=== PATIENT | female | born 1995 | race Caucasian/White ===

== ENCOUNTER 2019-03-09 10:35 | Emergency (ER) | payer MEDICAID ==
[~2019-03-09] VITALS: Ht 157.5 cm; Wt 52.3 kg
[~2019-03-09 10:35] MED LIST: METH500T PO
[2019-03-09] MEDS ORDERED: normal saline 1000ML IV soln IVB ONE (12:05)
[2019-03-09] MEDS ORDERED: ondansetron/PF 4mg/2ml inj IV ONE (12:05)
[2019-03-09] MEDS ORDERED: diphenhydrAMINE 50 mg/ml inj IV ONE (12:05)
[2019-03-09] MEDS ORDERED: haloperidol lactate 5mg/ml inj IM ONE (12:05)
[2019-03-09 12:32] LABS: BASOPHILS % (AUTO) 0.2 % (0-1); EOSINOPHILS % (AUTO) 0 % (0-6); HEMATOCRIT 43.6 % (35.0-45.0); HEMOGLOBIN 14.9 g/dl (12.0-16.0); LYMPHOCYTES # (AUTO) 0.8 X10'3 (1.1-4.8); LYMPHOCYTES % (AUTO) 5.8 % (21-51); MEAN CORPUSCULAR HGB CONC 34.2 g/dL (33.0-36.5); MEAN CORPUSCULAR VOLUME 87.6 FL (78-98); MEAN PLATELET VOLUME 8.4 FL (7.4-10.4); MONOCYTES # (AUTO) 0.3 X10'3 (0-0.9); MONOCYTES % (AUTO) 2.3 % (2-12); NEUTROPHILS # (AUTO) 12.9 X10'3 (1.8-7.7); NEUTROPHILS % (AUTO) 91.7 % (42-75); PLATELET COUNT 370 X10'3 (140-440); RED BLOOD COUNT 4.98 X10'6 (4.20-5.60); RED CELL DISTRIBUTION WIDTH 13.1 % (11.5-14.5); WHITE BLOOD COUNT 14.1 X10'3 (4.5-11.0)
[2019-03-09 12:36] LABS: ALANINE AMINOTRANSFERASE 39 U/L (12-78); ALBUMIN 4.6 G/DL (3.4-5.0); ALBUMIN/GLOBULIN RATIO 1.3 (1.1-1.5); ALKALINE PHOSPHATASE 67 IU/L (46-116); ANION GAP 11 (8-16); ASPARTATE AMINO TRANSFERASE 36 U/L (10-37); BILIRUBIN,TOTAL 0.6 MG/DL (0.1-1.0); BLOOD UREA NITROGEN 13 MG/DL (7-18); BUN/CREATININE RATIO 15.7 (6.6-38.0); CALCIUM 9.7 MG/DL (8.5-10.1); CHLORIDE 102 MMOL/L (99-107); CREATININE 0.83 MG/DL (0.40-0.90); GLUCOSE 115 MG/DL (70-104); LIPASE 124 U/L (73-393); POTASSIUM 3.9 MMOL/L (3.5-5.1); SODIUM 140 MMOL/L (135-145); TOTAL CARBON DIOXIDE 27.5 MMOL/L (24-32); TOTAL PROTEIN 8.1 G/DL (6.4-8.2); eGFR 86 ML/MIN
[2019-03-09 13:41] VITALS: BP 125/75
== END 2019-03-09 13:46 | disposition home or self-care (01) ==
LOC: ER 10:36
DX: G43.A0 Cyclical vomiting, in migraine, not intractable (principal); G89.29 Other chronic pain; F12.90 Cannabis use, unspecified, uncomplicated
CPT/HCPCS: 36415; 80053; 83690; 85025; 96372; 96374; 96375; 99283; J1200; J1630; J2405; J7030

== ENCOUNTER 2019-03-17 05:13 | Emergency (ER) | payer MEDICAID ==
[~2019-03-17] VITALS: Ht 157.5 cm; Wt 52.2 kg
[2019-03-17] MEDS ORDERED: albuterol 2.5 MG/3 ML nebule CONTNEB PRN ×2 (06:00→07:50)
[2019-03-17] MEDS ORDERED: ALBU6.7H9 INH (06:33)
[2019-03-17] MEDS ORDERED: PRED20TA PO (06:33)
[2019-03-17] MEDS ORDERED: FLUT100D2 INH (06:33)
[2019-03-17] MEDS ORDERED: MONT10TA21 PO (07:08)
[2019-03-17] MEDS ORDERED: montelukast 10mg tablet PO SCH (07:10)
[2019-03-17] MEDS ORDERED: diphenhydrAMINE 25mg capsule PO ONE (07:10)
[2019-03-17] MEDS ORDERED: albuterol 2.5 MG/3 ML nebule NEB ONE (07:50)
[2019-03-17 09:26] VITALS: BP 113/65
== END 2019-03-17 09:27 | disposition home or self-care (01) ==
LOC: ER 05:15
DX: J45.901 Unspecified asthma with (acute) exacerbation (principal); R09.02 Hypoxemia; G89.29 Other chronic pain; Z79.899 Other long term (current) drug therapy
CPT/HCPCS: 71045; 94644; 94645; 94760; 99291; Q0163

== ENCOUNTER 2019-03-22 10:13 | Emergency (ER) | payer MEDICAID ==
[~2019-03-22] VITALS: Ht 157.5 cm; Wt 50.9 kg
[~2019-03-22 10:13] MED LIST changes: +ALBU6.7H9 INH; +FLUT100D2 INH; +MONT10TA21 PO; +PRED20TA PO
[2019-03-22] MEDS ORDERED: predniSONE 20 mg tablet PO ONE (11:25)
[2019-03-22] MEDS ORDERED: LORazepam 1 MG tablet PO ONE (11:25)
[2019-03-22] MEDS ORDERED: albuterol 2.5 MG/3 ML nebule NEB ONE (11:25)
[2019-03-22] MEDS ORDERED: ipratropium/albuterol 3ml nebule NEB ONE (12:00)
[2019-03-22] MEDS ORDERED: AZIT-63 PO (12:03)
[2019-03-22] MEDS ORDERED: azithromycin 250mg tablet PO ONE (12:10)
[2019-03-22 12:40] VITALS: BP 123/47
== END 2019-03-22 12:41 | disposition home or self-care (01) ==
LOC: ER 10:13
DX: J20.9 Acute bronchitis, unspecified (principal); G89.29 Other chronic pain; Z79.899 Other long term (current) drug therapy
CPT/HCPCS: 71045; 94640; 94760; 99284; J7512

== ENCOUNTER 2022-05-14 11:01 | Emergency (ER) | payer MEDICAID ==
[~2022-05-14] VITALS: Ht 157.5 cm; Wt 52.7 kg
[~2022-05-14 11:01] MED LIST changes: +ALBU6.7H14 INH; -ALBU6.7H9 INH; -PRED20TA PO
[2022-05-14 13:11] LABS: BASOPHILS # (AUTO) 0.1 X10'3 (0-0.2); BASOPHILS % (AUTO) 0.7 % (0-1); EOSINOPHILS # (AUTO) 0.4 X10'3 (0-0.9); EOSINOPHILS % (AUTO) 3.7 % (0-6); HEMOGLOBIN 14.5 g/dl (12.0-16.0); LYMPHOCYTES # (AUTO) 2.6 X10'3 (1.1-4.8); LYMPHOCYTES % (AUTO) 26.5 % (21-51); MEAN CORPUSCULAR HEMOGLOBIN 29.5 PG (27.0-31.0); MEAN CORPUSCULAR HGB CONC 33.7 g/dL (33.0-36.5); MEAN CORPUSCULAR VOLUME 87.5 FL (78-98); MONOCYTES # (AUTO) 0.9 X10'3 (0-0.9); NEUTROPHILS % (AUTO) 60.1 % (42-75); PLATELET COUNT 316 X10'3 (140-440); RED BLOOD COUNT 4.91 X10'6 (4.20-5.60); RED CELL DISTRIBUTION WIDTH 13.2 % (11.5-14.5); WHITE BLOOD COUNT 9.9 X10'3 (4.5-11.0)
[2022-05-14 13:26] LABS: ALANINE AMINOTRANSFERASE 20 U/L (12-78); ALBUMIN/GLOBULIN RATIO 1.3 (1.1-1.5); ALKALINE PHOSPHATASE 68 IU/L (46-116); ANION GAP 1 (8-16); ASPARTATE AMINO TRANSFERASE 18 U/L (10-37); BILIRUBIN,TOTAL 0.5 MG/DL (0.1-1.0); BLOOD UREA NITROGEN 9 MG/DL (7-18); BUN/CREATININE RATIO 10.7 (6.6-38.0); CALCIUM 9.1 MG/DL (8.5-10.1); CHLORIDE 106 MMOL/L (99-107); CREATININE 0.84 MG/DL (0.40-0.90); GLUCOSE 71 MG/DL (70-104); POTASSIUM 4.1 MMOL/L (3.5-5.1); SODIUM 138 MMOL/L (135-145); TOTAL CARBON DIOXIDE 30.7 MMOL/L (24-32); eGFR 83 ML/MIN
[2022-05-14 14:36] VITALS: BP 95/66
== END 2022-05-14 14:39 | disposition home or self-care (01) ==
LOC: ER 11:02
DX: F41.9 Anxiety disorder, unspecified (principal); G89.29 Other chronic pain; M54.9 Dorsalgia, unspecified; Z79.899 Other long term (current) drug therapy
CPT/HCPCS: 36415; 71045; 80053; 83880; 84484; 85025; 93005; 99285